=== PATIENT | female | born 1985 | race Caucasian/White ===

== ENCOUNTER 2016-11-27 14:52 | Emergency (ER) | payer OTHER ==
[~2016-11-27] VITALS: Ht 154.9 cm; Wt 68.0 kg
[~2016-11-27 14:52] MED LIST: DEPO-MEDRO20 MG/1 ML; ULTRAM 50MG TAB50 MG PO; ZOLOFT100 MG PO; [UNRECOGNIZED DRUG - OTHER]
[2016-11-27] MEDS ORDERED: PROZAC20 MG PO (14:58)
[2016-11-27] MEDS ORDERED: WELLBUTRIN XL150 MG PO (14:58)
[2016-11-27] MEDS ORDERED: VISTARIL 25 MG25 M1 PO (14:59)
[2016-11-27 15:36] LABS: ABSOLUTE NEUTROPHILS 6.3 thou/uL (1.4-8.2); BASOPHILS 0.7 % (0.0-2.0); EOSINOPHILS 0.7 % (0.0-3.0); HEMATOCRIT 39.4 % (37.0-47.0); HEMOGLOBIN 13.8 gm/dL (12.0-15.0); LYMPHOCYTES 23.2 % (24.0-44.0); MCH 31.9 pg (26.0-34.0); MCHC 34.9 g/dL (28.0-37.0); MCV 91.2 fL (80.0-100.0); MONOCYTES 6.7 % (1.0-8.0); PLATELET COUNT 273 thou/uL (150-400); POLYS 68.7 % (36.0-66.0); RBC 4.32 mil/uL (4.20-5.00); RDW 12.8 % (10.5-14.5); WBC 9.2 thou/uL (4.0-11.0)
[2016-11-27 15:40] LABS: MANUAL DIFF NO
[2016-11-27 15:45] LABS: CALCIUM 8.9 mg/dL (8.5-10.1); CREATININE 0.8 mg/dL (0.6-1.0); POTASSIUM 3.9 mmol/L (3.5-5.1)
[2016-11-27 19:05] VITALS: BP 138/68
== END 2016-11-27 19:06 | disposition home or self-care (01) ==
LOC: ER 14:52
PROVIDERS: Nurse Practitioner Family
DX: S06.0X0A Concussion without loss of consciousness, initial encounter (principal); F32.9 Major depressive disorder, single episode, unspecified; Z98.890 Other specified postprocedural states; Z88.5 Allergy status to narcotic agent; W01.198A Fall on same level from slipping, tripping and stumbling with subsequent striking against other object, initial encounter; Y93.E1 Activity, personal bathing and showering; Y92.89 Other specified places as the place of occurrence of the external cause; Y99.8 Other external cause status

== ENCOUNTER 2017-02-03 09:58 | Emergency (ER) | payer OTHER ==
[~2017-02-03] VITALS: Ht 154.9 cm; Wt 70.8 kg
[~2017-02-03 09:58] MED LIST changes: +PROZAC20 MG PO; +VISTARIL 25 MG25 M1 PO; +WELLBUTRIN XL150 MG PO
[2017-02-03 10:35] LABS: ABSOLUTE NEUTROPHILS 7.3 thou/uL (1.4-8.2); BASOPHILS 0.7 % (0.0-2.0); EOSINOPHILS 0.7 % (0.0-3.0); HEMATOCRIT 40.6 % (37.0-47.0); HEMOGLOBIN 13.7 gm/dL (12.0-15.0); LYMPHOCYTES 28.8 % (24.0-44.0); MCH 31.3 pg (26.0-34.0); MCHC 33.8 g/dL (28.0-37.0); MCV 92.7 fL (80.0-100.0); MONOCYTES 4.3 % (1.0-8.0); PLATELET COUNT 296 thou/uL (150-400); POLYS 65.5 % (36.0-66.0); RBC 4.38 mil/uL (4.20-5.00); RDW 12.2 % (10.5-14.5); WBC 11.1 thou/uL (4.0-11.0)
[2017-02-03 10:36] LABS: MANUAL DIFF NO
[2017-02-03 10:48] LABS: CALCIUM 8.9 mg/dL (8.5-10.1); CREATININE 0.8 mg/dL (0.6-1.0); POTASSIUM 3.9 mmol/L (3.5-5.1)
[2017-02-03 12:01] LABS: URINE BILIRUBIN NEGATIVE (Negative); URINE BLOOD NEGATIVE (Negative); URINE COLOR YELLOW; URINE GLUCOSE-RANDOM* NEGATIVE (Negative); URINE KETONES NEGATIVE (Negative); URINE NITRITE NEGATIVE (Negative); URINE PROTEIN (DIPSTICK) NEGATIVE (Negative); URINE SPECIFIC GRAVITY 1.025 (1.003-1.035); URINE UROBILINOGEN 0.2 E.U./dl (0.2-1.0)
[2017-02-03] MEDS ORDERED: ONDANSETRON HCL4 M2 PO (12:15)
[2017-02-03] MEDS ORDERED: IBUPROFEN 600600 M1 PO (12:15)
[2017-02-03 12:25] VITALS: BP 119/80
== END 2017-02-03 12:41 | disposition home or self-care (01) ==
LOC: ER 09:58
PROVIDERS: Nurse Practitioner
DX: R10.9 Unspecified abdominal pain (principal); R11.2 Nausea with vomiting, unspecified; R51 Headache

== ENCOUNTER 2017-08-08 13:30 | Emergency (ER) | payer OTHER ==
[~2017-08-08] VITALS: Ht 152.4 cm; Wt 81.7 kg
[~2017-08-08 13:30] MED LIST changes: +IBUPROFEN 600600 M1 PO; +ONDANSETRON HCL4 M2 PO
[2017-08-08] MEDS ORDERED: TRINESSA LO TA1 EACH PO (14:21)
[2017-08-08] MEDS ORDERED: VERAPAMIL ER180 M1 PO (14:21)
[2017-08-08] MEDS ORDERED: IMITREX100 MG PO (14:22)
[2017-08-08] MEDS ORDERED: DOXYCYCLINE 10100 MG PO (14:22)
[2017-08-08 14:52] LABS: URINE BILIRUBIN NEGATIVE (Negative); URINE BLOOD NEGATIVE (Negative); URINE CLARITY CLEAR; URINE COLOR YELLOW; URINE GLUCOSE-RANDOM* NEGATIVE (Negative); URINE KETONES NEGATIVE (Negative); URINE LEUKOCYTES NEGATIVE (Negative); URINE NITRITE NEGATIVE (Negative); URINE PROTEIN (DIPSTICK) NEGATIVE (Negative); URINE SPECIFIC GRAVITY 1.015 (1.005-1.035); URINE UROBILINOGEN 0.2 E.U./dl (0.2-1.0)
[2017-08-08 14:56] LABS: ABSOLUTE NEUTROPHILS 6.7 thou/uL (1.4-8.2); BASOPHILS 0.8 % (0.0-2.0); EOSINOPHILS 1.5 % (0.0-3.0); HEMATOCRIT 35.7 % (37.0-47.0); HEMOGLOBIN 12.4 gm/dL (12.0-15.0); MCH 31.4 pg (26.0-34.0); MCHC 34.8 g/dL (28.0-37.0); MCV 90.3 fL (80.0-100.0); MONOCYTES 5.6 % (1.0-8.0); PLATELET COUNT 330 thou/uL (150-400); POLYS 64.1 % (36.0-66.0); RBC 3.95 mil/uL (4.20-5.00); RDW 13.2 % (10.5-14.5); WBC 10.5 thou/uL (4.0-11.0)
[2017-08-08 15:00] LABS: ANION GAP 6 mmol/L (7-16); BUN 14 mg/dL (7-18); CHLORIDE 103 mmol/L (98-107); CO2 30 mmol/L (21-32); CREATININE 0.8 mg/dL (0.6-1.0); GLUCOSE 91 mg/dL (74-106); POTASSIUM 3.9 mmol/L (3.5-5.1); SODIUM 139 mmol/L (136-145)
[2017-08-08 15:03] LABS: AMP/METHAMP Negative (Negative); BARBITURATES Negative (Negative); BENZODIAZEPINES Negative (Negative); COCAINE Negative (Negative); METHADONE Negative (Negative); OPIATES Negative (Negative); PCP Negative (Negative)
[2017-08-08 15:07] LABS: ALBUMIN 2.9 g/dL (3.4-5.0); SALICYLATE < 2.8 mg/dL (2.8-20.0); SGOT 12 U/L (15-37); SGPT 19 U/L (30-65); TOTAL BILIRUBIN 0.2 mg/dL (<0.1-1.0); TOTAL PROTEIN 6.7 g/dL (6.4-8.2)
== END 2017-08-08 18:18 | disposition home or self-care (01) ==
LOC: ER 13:30
PROVIDERS: Physician Assistant
DX: F50.2 Bulimia nervosa (principal); F32.9 Major depressive disorder, single episode, unspecified; F41.9 Anxiety disorder, unspecified; R53.83 Other fatigue; Z88.5 Allergy status to narcotic agent

== ENCOUNTER → 2018-05-13 | Outpatient (CLI) | payer BC ==
[~2018-05-13] MED LIST changes: +AIMOVIG AU70 MG/1 ML SUBQ; +DOXYCYCLINE 10100 MG PO; +ESZOPICLONE2 MG PO; +IMITREX100 MG PO; +KEFLEX500 M1 PO; +MOBIC15 MG PO; +NORCO 5-325 TA1 EACH PO; +PERCOCET 5-3251 EACH PO; +PERCOCET PO; +PROZAC40 MG PO; +SENNA-DOCUSATE1 EAC1 PO; +TOPAMAX100 MG PO; +TORADOL 10 MG T10 MG PO; +TRAMADOL 50 MG50 MG PO; +TRINESSA LO TA1 EACH PO; +VERAPAMIL ER180 M1 PO; +ZOFRAN ODT4 MG PO
== END | disposition home or self-care (01) ==
LOC: CAT 11:11
DX: N83.291 Other ovarian cyst, right side (principal); F32.9 Major depressive disorder, single episode, unspecified; Z88.6 Allergy status to analgesic agent; Z88.8 Allergy status to other drugs, medicaments and biological substances; Z79.891 Long term (current) use of opiate analgesic; Z79.899 Other long term (current) drug therapy

== ENCOUNTER 2018-05-18 11:09 | Emergency (ER) | payer BC, OTHER ==
[~2018-05-18] VITALS: Ht 152.4 cm; Wt 79.4 kg
[~2018-05-18 11:09] MED LIST changes: -AIMOVIG AU70 MG/1 ML SUBQ; -ESZOPICLONE2 MG PO; -KEFLEX500 M1 PO; -MOBIC15 MG PO; -NORCO 5-325 TA1 EACH PO; -PERCOCET 5-3251 EACH PO; -PERCOCET PO; -PROZAC40 MG PO; -SENNA-DOCUSATE1 EAC1 PO; -TOPAMAX100 MG PO; -TORADOL 10 MG T10 MG PO; -TRAMADOL 50 MG50 MG PO; -ZOFRAN ODT4 MG PO
[2018-05-18] MEDS ORDERED: TRAMADOL 50 MG50 MG PO (12:02)
[2018-05-18] MEDS ORDERED: AIMOVIG AU70 MG/1 ML SUBQ (12:04)
[2018-05-18] MEDS ORDERED: WELLBUTRIN XL150 MG PO (12:04)
[2018-05-18] MEDS ORDERED: PROZAC40 MG PO (12:04)
[2018-05-18] MEDS ORDERED: TOPAMAX100 MG PO (12:04)
[2018-05-18] MEDS ORDERED: ESZOPICLONE2 MG PO (12:05)
[2018-05-18 18:01] LABS: ABSOLUTE NEUTROPHILS 5.8 thou/uL (1.4-8.2); BASOPHILS 0.7 % (0.0-2.0); HEMATOCRIT 38.7 % (37.0-47.0); HEMOGLOBIN 13.4 gm/dL (12.0-15.0); LYMPHOCYTES 25.7 % (24.0-44.0); MCH 31.9 pg (26.0-34.0); MCHC 34.5 g/dL (28.0-37.0); MCV 92.4 fL (80.0-100.0); MONOCYTES 6.8 % (1.0-8.0); PLATELET COUNT 247 thou/uL (150-400); POLYS 65.8 % (36.0-66.0); RBC 4.19 mil/uL (4.20-5.00); RDW 13.4 % (10.5-14.5); WBC 8.9 thou/uL (4.0-11.0)
[2018-05-18 18:09] LABS: ALBUMIN 3.5 g/dL (3.4-5.0); ANION GAP 10 mmol/L (7-16); BUN 12 mg/dL (7-18); CALCIUM 8.4 mg/dL (8.5-10.1); CHLORIDE 107 mmol/L (98-107); CO2 23 mmol/L (21-32); CREATININE 0.7 mg/dL (0.6-1.0); DIRECT BILIRUBIN < 0.1 mg/dL (<0.1-0.3); GLUCOSE 86 mg/dL (74-106); LIPASE 155 U/L (73-393); POTASSIUM 3.8 mmol/L (3.5-5.1); SGOT 19 U/L (15-37); SGPT 26 U/L (30-65); SODIUM 140 mmol/L (136-145); TOTAL BILIRUBIN 0.2 mg/dL (<0.1-1.0); TOTAL PROTEIN 7.1 g/dL (6.4-8.2)
[2018-05-18] MEDS ORDERED: NORCO 5-325 TA1 EACH PO (18:28)
[2018-05-18] MEDS ORDERED: ZOFRAN ODT4 MG PO (18:28)
[2018-05-18] MEDS ORDERED: MOBIC15 MG PO (18:28)
[2018-05-18 18:38] VITALS: BP 118/72
== END 2018-05-18 18:47 | disposition home or self-care (01) ==
LOC: ER 11:09
PROVIDERS: Emergency Medicine
DX: R10.2 Pelvic and perineal pain (principal); R10.31 Right lower quadrant pain; F32.9 Major depressive disorder, single episode, unspecified; Z88.5 Allergy status to narcotic agent

== ENCOUNTER 2018-05-20 04:45 | Emergency (ER) | payer BC, OTHER ==
[~2018-05-20] VITALS: Ht 152.4 cm; Wt 79.4 kg
[~2018-05-20 04:45] MED LIST changes: +AIMOVIG AU70 MG/1 ML SUBQ; +ESZOPICLONE2 MG PO; +MOBIC15 MG PO; +NORCO 5-325 TA1 EACH PO; +PROZAC40 MG PO; +TOPAMAX100 MG PO; +TRAMADOL 50 MG50 MG PO; +ZOFRAN ODT4 MG PO
[2018-05-20] MEDS ORDERED: TORADOL 10 MG T10 MG PO (04:57)
[2018-05-20 05:43] LABS: ABSOLUTE NEUTROPHILS 6.9 thou/uL (1.4-8.2); BASOPHILS 0.4 % (0.0-2.0); EOSINOPHILS 1.2 % (0.0-3.0); HEMATOCRIT 35.6 % (37.0-47.0); HEMOGLOBIN 12.3 gm/dL (12.0-15.0); LYMPHOCYTES 21.2 % (24.0-44.0); MCH 32.2 pg (26.0-34.0); MCHC 34.5 g/dL (28.0-37.0); MCV 93.4 fL (80.0-100.0); MONOCYTES 7.1 % (1.0-8.0); PLATELET COUNT 238 thou/uL (150-400); POLYS 70.1 % (36.0-66.0); RBC 3.81 mil/uL (4.20-5.00); RDW 13.1 % (10.5-14.5); WBC 9.8 thou/uL (4.0-11.0)
[2018-05-20 05:49] LABS: CALCIUM 8.9 mg/dL (8.5-10.1); CREATININE 0.8 mg/dL (0.6-1.0); POTASSIUM 3.8 mmol/L (3.5-5.1)
[2018-05-20 05:56] LABS: ALBUMIN 3.3 g/dL (3.4-5.0); TOTAL BILIRUBIN 0.2 mg/dL (<0.1-1.0); TOTAL PROTEIN 6.8 g/dL (6.4-8.2)
[2018-05-20] MEDS ORDERED: PERCOCET PO (06:05)
[2018-05-20 06:18] LABS: URINE BILIRUBIN NEGATIVE (Negative); URINE BLOOD NEGATIVE (Negative); URINE CLARITY CLEAR; URINE COLOR YELLOW; URINE GLUCOSE-RANDOM* NEGATIVE (Negative); URINE KETONES NEGATIVE (Negative); URINE LEUKOCYTES-REFLEX NEGATIVE (Negative); URINE NITRITE-REFLEX NEGATIVE (Negative); URINE PROTEIN (DIPSTICK) NEGATIVE (Negative); URINE UROBILINOGEN 0.2 E.U./dl (0.2-1.0)
[2018-05-20 06:24] VITALS: BP 109/64
[2018-05-21] MEDS ORDERED: ZOFRAN ODT4 MG PO (23:33)
[2018-05-21] MEDS ORDERED: PERCOCET 5-3251 EACH PO (23:33)
[2018-05-21] MEDS ORDERED: SENNA-DOCUSATE1 EAC1 PO (23:33)
== END 2018-05-20 06:25 | disposition home or self-care (01) ==
LOC: ER 04:45
PROVIDERS: Emergency Medicine
DX: N83.291 Other ovarian cyst, right side (principal); F32.9 Major depressive disorder, single episode, unspecified; Z88.5 Allergy status to narcotic agent

== ENCOUNTER 2018-05-21 21:57 | Emergency (ER) | payer BC, OTHER ==
[~2018-05-21] VITALS: Ht 152.4 cm; Wt 79.4 kg
[~2018-05-21 21:57] MED LIST changes: +PERCOCET PO; +TORADOL 10 MG T10 MG PO
[2018-05-21 22:17] LABS: URINE BILIRUBIN NEGATIVE (Negative); URINE BLOOD NEGATIVE (Negative); URINE CLARITY CLEAR; URINE COLOR YELLOW; URINE GLUCOSE-RANDOM* NEGATIVE (Negative); URINE KETONES NEGATIVE (Negative); URINE LEUKOCYTES-REFLEX NEGATIVE (Negative); URINE NITRITE-REFLEX NEGATIVE (Negative); URINE PROTEIN (DIPSTICK) NEGATIVE (Negative); URINE SPECIFIC GRAVITY 1.025 (1.005-1.035); URINE UROBILINOGEN 0.2 E.U./dl (0.2-1.0)
[2018-05-21 22:48] LABS: ABSOLUTE NEUTROPHILS 5.4 thou/uL (1.4-8.2); BASOPHILS 0.4 % (0.0-2.0); HEMATOCRIT 38.3 % (37.0-47.0); HEMOGLOBIN 12.9 gm/dL (12.0-15.0); LYMPHOCYTES 28.4 % (24.0-44.0); MCH 31.7 pg (26.0-34.0); MCHC 33.7 g/dL (28.0-37.0); MCV 94.2 fL (80.0-100.0); MONOCYTES 5.1 % (1.0-8.0); PLATELET COUNT 269 thou/uL (150-400); POLYS 65.1 % (36.0-66.0); RBC 4.06 mil/uL (4.20-5.00); WBC 8.2 thou/uL (4.0-11.0)
[2018-05-21 22:51] LABS: ANION GAP 10 mmol/L (7-16); BUN 14 mg/dL (7-18); CALCIUM 8.5 mg/dL (8.5-10.1); CHLORIDE 106 mmol/L (98-107); CO2 23 mmol/L (21-32); CREATININE 0.8 mg/dL (0.6-1.0); GLUCOSE 117 mg/dL (74-106); POTASSIUM 3.5 mmol/L (3.5-5.1); SODIUM 139 mmol/L (136-145)
[2018-05-21 23:00] LABS: ALBUMIN 3.4 g/dL (3.4-5.0); LIPASE 126 U/L (73-393); SGOT 29 U/L (15-37); SGPT 37 U/L (30-65); TOTAL BILIRUBIN < 0.1 mg/dL (<0.1-1.0); TOTAL PROTEIN 7.2 g/dL (6.4-8.2)
[2018-05-21] MEDS ORDERED: PERCOCET 5-3251 EACH PO (23:33)
[2018-05-21] MEDS ORDERED: ZOFRAN ODT4 MG PO (23:33)
[2018-05-21] MEDS ORDERED: SENNA-DOCUSATE1 EAC1 PO (23:33)
[2018-05-21 23:58] VITALS: BP 112/66
== END 2018-05-21 23:59 | disposition home or self-care (01) ==
LOC: ER 21:57
PROVIDERS: Emergency Medicine
DX: N83.291 Other ovarian cyst, right side (principal); R11.2 Nausea with vomiting, unspecified; F32.9 Major depressive disorder, single episode, unspecified; Z88.5 Allergy status to narcotic agent; Z88.8 Allergy status to other drugs, medicaments and biological substances; Z85.3 Personal history of malignant neoplasm of breast

== ENCOUNTER 2018-05-24 17:53 | Emergency (ER) | payer BC, OTHER ==
[~2018-05-24] VITALS: Ht 152.4 cm; Wt 79.4 kg
[~2018-05-24 17:53] MED LIST changes: +PERCOCET 5-3251 EACH PO; +SENNA-DOCUSATE1 EAC1 PO
[2018-05-24 19:38] LABS: URINE BILIRUBIN NEGATIVE (Negative); URINE BLOOD NEGATIVE (Negative); URINE CLARITY CLEAR; URINE COLOR YELLOW; URINE GLUCOSE-RANDOM* NEGATIVE (Negative); URINE KETONES NEGATIVE (Negative); URINE LEUKOCYTES-REFLEX NEGATIVE (Negative); URINE NITRITE-REFLEX NEGATIVE (Negative); URINE PROTEIN (DIPSTICK) NEGATIVE (Negative); URINE SPECIFIC GRAVITY > 1.030 (1.005-1.035); URINE UROBILINOGEN 0.2 E.U./dl (0.2-1.0)
[2018-05-24 20:11] LABS: ABSOLUTE NEUTROPHILS 4.2 thou/uL (1.4-8.2); BASOPHILS 0.6 % (0.0-2.0); EOSINOPHILS 1.8 % (0.0-3.0); HEMATOCRIT 38.5 % (37.0-47.0); HEMOGLOBIN 13.2 gm/dL (12.0-15.0); LYMPHOCYTES 37.3 % (24.0-44.0); MCH 31.8 pg (26.0-34.0); MCHC 34.3 g/dL (28.0-37.0); MCV 92.7 fL (80.0-100.0); MONOCYTES 8.2 % (1.0-8.0); POLYS 52.1 % (36.0-66.0); RBC 4.15 mil/uL (4.20-5.00); RDW 13.1 % (10.5-14.5)
[2018-05-24 20:12] LABS: PLATELET COUNT 182 thou/uL (150-400)
[2018-05-24 20:16] LABS: CALCIUM 9.1 mg/dL (8.5-10.1); POTASSIUM 4.4 mmol/L (3.5-5.1)
[2018-05-24 20:22] LABS: ALBUMIN 3.4 g/dL (3.4-5.0); TOTAL BILIRUBIN 0.3 mg/dL (<0.1-1.0); TOTAL PROTEIN 7.2 g/dL (6.4-8.2)
[2018-05-25 00:31] VITALS: BP 101/56
== END 2018-05-25 00:39 | disposition home or self-care (01) ==
LOC: ER 17:53
PROVIDERS: Emergency Medicine
DX: R10.2 Pelvic and perineal pain (principal); R10.31 Right lower quadrant pain; F32.9 Major depressive disorder, single episode, unspecified; Z88.5 Allergy status to narcotic agent

== ENCOUNTER 2018-05-27 10:20 | Emergency (ER) | payer BC, OTHER ==
[~2018-05-27] VITALS: Ht 167.6 cm; Wt 68.0 kg
[2018-05-27 10:39] LABS: URINE CLARITY CLEAR; URINE COLOR YELLOW; URINE GLUCOSE-RANDOM* NEGATIVE (Negative); URINE PROTEIN (DIPSTICK) NEGATIVE (Negative); URINE SPECIFIC GRAVITY >= 1.030 (1.005-1.035)
[2018-05-27 10:40] LABS: URINE BILIRUBIN NEGATIVE (Negative); URINE BLOOD 3+ (Negative); URINE KETONES NEGATIVE (Negative); URINE LEUKOCYTES-REFLEX NEGATIVE (Negative); URINE NITRITE-REFLEX NEGATIVE (Negative); URINE UROBILINOGEN 0.2 E.U./dl (0.2-1.0)
[2018-05-27 10:55] LABS: ABSOLUTE NEUTROPHILS 9.8 thou/uL (1.4-8.2); BASOPHILS 0.3 % (0.0-2.0); EOSINOPHILS 0.6 % (0.0-3.0); HEMATOCRIT 38.4 % (37.0-47.0); LYMPHOCYTES 16.8 % (24.0-44.0); MCH 31.4 pg (26.0-34.0); MCHC 33.8 g/dL (28.0-37.0); MCV 92.8 fL (80.0-100.0); MONOCYTES 5.2 % (1.0-8.0); PLATELET COUNT 290 thou/uL (150-400); POLYS 77.1 % (36.0-66.0); RBC 4.14 mil/uL (4.20-5.00); RDW 13.2 % (10.5-14.5); WBC 12.7 thou/uL (4.0-11.0)
[2018-05-27 10:58] LABS: CASTS None Seen /LPF (None Seen); CRYSTALS None Seen /LPF (None Seen); SQUAMOUS 4-10 Moderate /LPF (0-3)
[2018-05-27 10:59] LABS: URINE RBC 0-2 Rare /HPF (0-2); URINE WBC-REFLEX 0-5 Rare /HPF (0-5)
[2018-05-27 11:00] LABS: BACTERIA-REFLEX 1-9 Few /HPF (None Seen)
[2018-05-27 11:27] LABS: CREATININE 0.9 mg/dL (0.6-1.0); POTASSIUM 3.4 mmol/L (3.5-5.1)
[2018-05-27 11:34] LABS: ALBUMIN 3.5 g/dL (3.4-5.0); TOTAL BILIRUBIN 0.2 mg/dL (<0.1-1.0); TOTAL PROTEIN 7.2 g/dL (6.4-8.2)
[2018-05-27] MEDS ORDERED: TRAMADOL 50 MG50 MG PO (13:16)
[2018-05-27] MEDS ORDERED: KEFLEX500 M1 PO (13:43)
[2018-05-27 14:00] VITALS: BP 113/69
== END 2018-05-27 14:00 | disposition home or self-care (01) ==
LOC: ER 10:20
PROVIDERS: Physician Assistant
DX: N83.201 Unspecified ovarian cyst, right side (principal); F32.9 Major depressive disorder, single episode, unspecified; Z88.5 Allergy status to narcotic agent; R11.2 Nausea with vomiting, unspecified

== ENCOUNTER 2019-08-04 14:21 | Emergency (ER) | payer OTHER ==
[~2019-08-04] VITALS: Ht 152.4 cm; Wt 69.0 kg
[~2019-08-04 14:21] MED LIST changes: +KEFLEX500 M1 PO
[2019-08-04 14:36] VITALS: BP 126/82
[2019-08-04] MEDS ORDERED: CLARITIN-D 121 EAC1 PO (15:04)
[2019-08-04] MEDS ORDERED: MEDROLDOSEPACK PO (15:04)
[2019-08-04] MEDS ORDERED: DOXYCYCLINE 10100 M2 PO (15:11)
== END 2019-08-04 15:20 | disposition home or self-care (01) ==
LOC: ER 14:21
DX: J32.9 Chronic sinusitis, unspecified (principal); Z79.899 Other long term (current) drug therapy

== ENCOUNTER → 2020-04-05 | Outpatient (CLI) | payer OTHER ==
[~2020-04-05] MED LIST changes: +CLARITIN-D 121 EAC1 PO; +DOXYCYCLINE 10100 M2 PO; +MEDROLDOSEPACK PO
== END ==
LOC: ULTRA 09:03
PROVIDERS: ATTEND Family Medicine
DX: N83.202 Unspecified ovarian cyst, left side (principal)

== ENCOUNTER 2020-08-08 16:41 | Emergency (ER) | payer BC ==
[~2020-08-08] VITALS: Ht 154.9 cm; Wt 63.5 kg
[2020-08-08] MEDS ORDERED: PHENTERMINE H37.5 M1 PO (16:54)
[2020-08-08] MEDS ORDERED: LAMOTRIGINE200 MG PO (16:54)
[2020-08-08] MEDS ORDERED: ARIPIPRAZOLE5 MG PO (16:54)
[2020-08-08] MEDS ORDERED: BUTALB-APAP-CA1 EACH PO (23:08)
[2020-08-08] MEDS ORDERED: ONDANSETRON HCL4 M2 PO (23:08)
[2020-08-08 23:13] VITALS: BP 129/83
== END 2020-08-08 23:17 | disposition home or self-care (01) ==
LOC: ER 16:41
DX: G43.909 Migraine, unspecified, not intractable, without status migrainosus (principal); R11.2 Nausea with vomiting, unspecified; Z98.890 Other specified postprocedural states; Z79.899 Other long term (current) drug therapy

== ENCOUNTER 2020-08-09 13:50 | Emergency (ER) | payer BC ==
[~2020-08-09] VITALS: Ht 154.9 cm; Wt 63.5 kg
[~2020-08-09 13:50] MED LIST changes: +ARIPIPRAZOLE5 MG PO; +BUTALB-APAP-CA1 EACH PO; +LAMOTRIGINE200 MG PO; +PHENTERMINE H37.5 M1 PO
[2020-08-09 20:09] VITALS: BP 125/80
== END 2020-08-09 20:09 | disposition home or self-care (01) ==
LOC: ER 13:50
DX: G43.909 Migraine, unspecified, not intractable, without status migrainosus (principal); R11.2 Nausea with vomiting, unspecified; Z79.899 Other long term (current) drug therapy

== ENCOUNTER 2020-08-14 13:34 | Emergency (ER) | payer BC ==
[~2020-08-14] VITALS: Ht 152.4 cm; Wt 64.4 kg
[2020-08-14 17:57] VITALS: BP 121/74
== END 2020-08-14 17:57 | disposition home or self-care (01) ==
LOC: ER 13:34
DX: G43.909 Migraine, unspecified, not intractable, without status migrainosus (principal); Z79.899 Other long term (current) drug therapy

== ENCOUNTER 2021-01-28 07:41 | Emergency (ER) | payer BC ==
[~2021-01-28] VITALS: Ht 154.9 cm; Wt 65.8 kg
[2021-01-28 09:03] VITALS: BP 104/58
== END 2021-01-28 09:03 | disposition home or self-care (01) ==
LOC: ER 07:41
DX: G43.909 Migraine, unspecified, not intractable, without status migrainosus (principal); F32.9 Major depressive disorder, single episode, unspecified; Z85.3 Personal history of malignant neoplasm of breast; Z98.890 Other specified postprocedural states; Z79.891 Long term (current) use of opiate analgesic; Z79.899 Other long term (current) drug therapy